=== PATIENT | male | born 1985 | race Caucasian/White ===

== ENCOUNTER → 2017-01-06 | Outpatient (CLI) | payer OTHER ==
[~2017-01-06] MED LIST: ABL10 PO; CGN1 PO; CLR10 PO; DIVA125C PO; FLUO40CA8 PO; LAMO25TA PO; OMEP20CA59 PO; PROM12.56 PO
--- NOTE | 2017-01-07 06:02 | PAP/PSG TECHNICIAN REPORT ---
[facility] Loss Prevention Associate Polysomnogram Report Study name: None Report date: 01/07/2017 Study date: 01/06/2017 Referring Physician: Mary WILSON M.D. Name: FLORA BUTCHER Interpreting Physician: Sylvester Wilson M.D. Date of : 1985 Loss Prevention Associate: Corie Guerra, PSGT. Sex: Male Age: 31 StudyType: PSG Weight: 285 lbs Height: 31 years, Height 5' 10" BMI: 40.89 Medications: CLARITIN 10 MG, LAMOTRIGINE 100 MG, BENTROPINE 1 MG, PROZAC 40 MG. Patient History 31 YEAR OLD MALE IN ROOM 8 WITH FRAGILE X SYNDROME AND SEVERE JARRETT, HE HAD UPPP SURGERY DONE 10/08/2016. PT. IS HERE FOR FOLLOW UP ON UPPP SURGERY. Parameters Monitored NPSG: E1-M2, E2-M1, Fp1-M2, Fp2-M1, F3-M2, F4-M2, F4-M1, C3-M2, C4-M2, C4-M1, O1-M2, O2-M2, O2-M1, T3-M2, T4-M1, P3-M2, P4-M1, CHIN1, CHIN2, HR, EKG, Legs, PFLOW, SNOR, FLOW, CFLOW, Tidal Volume, THOR, ABDO, SpO2, PLTH, CPRESS, ETCO2 Wave, ETCO2, pH Sleep Architecture Sleep Stages Time at Lights Off 9:54:38 PM STAGES Time (min.) TST (%) Time at Lights On 5:15:38 AM Wake 149.5 -- Total Recording Time (TRT) 441.50 min. N1 3.5 1 Total Sleep Period (TSP) 367.5 min. N2 268.5 92 Total Sleep Time (TST) 291.5min. N3 0.5 0 Awake Time 150.0 min. REM 19.0 7 Wake after Sleep Onset 121.5 min. Sleep Efficiency (SE) 66 % Sleep Onset Latency (KALYAN) 28.0 min. Number of Stage 1 Shifts None Awakenings 5 Stage Changes 19 Number of REM periods 3 REM 19.0 7 REM Latency 203.5 min. NREM 272.5 93 Body Position Analysis Supine Right Left Side Prone Vertical Total Sleep Time (min.) 441.0 0.0 0.0 0.00 0.0 0.0 Total Sleep Time (%) 100% 0% 0% 0 0% N/A% Total Sleep Time REM (min.) 19.0 0.0 0.0 None 0.0 0.0 Total Sleep Time NREM (min.) 272.5 0.0 0.0 None 0.0 0.0 Intermittent Wake (min.) 149.5 0.0 0.0 None 0.0 0.0 Total Sleep Period (%) 100% None None None None None Arousals Myoclonus (PLM) * Events Count Index Events Count Index Spontaneous 34 7 Events Awake (PLMW) 6 2.4 Respiratory 3 0.6 Events Asleep w/ Arousal (PLMA) 14 2.9 PLM 14 3 Events Asleep w/o Arousal (PLMS) 95 19.6 Snoring 0 0 Total Asleep 109 22.4 Total 51 10 Total 115 16 Respiratory Analysis * CA OA MA CH H RERA Total Count 0 0 0 0 43 1 43 Index 0.0 0.0 0.0 0 8.9 0 9.1 Mean Duration 0.0 0.0 0.0 0.00 21.6 9.8 21.4 Longest Duration 0.0 0.0 0.0 0.00 0.0 9.8 56.0 Respiratory Event Summary Total Supine ~Supine Right Left Prone REM NREM Apneas Count 0 0 N/A N/A N/A N/A 0 0 Index 0.0 0 N/A N/A N/A N/A 0 0 Hypopneas (4% Desat) Count 43 43 N/A N/A N/A N/A 2 41 Index 8.9 8.9 N/A N/A N/A N/A 6.3 9.0 Apneas & All Hypopneas Count 43 43 N/A N/A N/A N/A 2 41 Index 8.9 9 N/A N/A N/A N/A 6.3 9.0 Respiratory Events (Statement Distribution Clerk+All Hyp+RERA) Count 43 44 N/A N/A N/A N/A 2 41 Index 9.1 9 N/A N/A N/A N/A 6.3 9.2 Respiratory Related Arousal Count 3 44 N/A N/A N/A N/A 0 3 Index 0.6 1 N/A N/A N/A N/A 0 1 Snoring Analysis Supine Right Left Prone REM NREM Total Snore duration 2.0 min Snores count 83 N/A N/A N/A 9 74 83 Snore mean duration 1.5 Sec Snores index 17 N/A N/A N/A 28.4 16.3 17.1 TST with snoring (%) 0.7% Desaturation Event Summary: Minimum %SpO2 Event Count Mean/Min/Max Duration(sec.) Desaturation Index % Time In Bed > 90 60 28.6 / 9.3 / 60.0 9.4 87.6 86 - 90 6 24.2 / 11.0 / 55.0 6.8 12.1 81 - 85 0 N/A 0.0 0.2 76 - 80 0 N/A 0.0 0.0 71 - 75 0 N/A 0.0 0.0 66 - 70 0 N/A 0.0 0.0 61 - 65 0 N/A 0.0 0.0 56 - 60 0 N/A 0.0 0.0 51 - 55 0 N/A 0.0 0.0 < 50 0 N/A 0.0 0.0 Total REM NREM Awake <50% 0.0 min. 0.0 min. 0.0 min. 0.0 min. 51 - 60% 0.0 min. 0.0 min. 0.0 min. 0.0 min. 61 - 70% 0.0 min. 0.0 min. 0.0 min. 0.0 min. 71 - 80% 0.0 min. 0.0 min. 0.0 min. 0.0 min. 81 - 90% 53.8 min. 0.0 min. 41.9 min. 11.9 min. 91 - 100% 381.4 min. 18.9 min. 226.3 min. 136.2 min. Average 93 96 93 94 Minimum SpO2 82 91 82 87 Desaturation Event Index 8.4 9.5 12.8 0.4 # Desat. Events below 89% 20 N/A 20 N/A Time(%) with Saturation below 89% 1.8 0.0 1.6 0.2 Time(min.) with Saturation below 89% 7.9 0.0 7.1 0.8 Time (mins) REM (mins) NREM (mins) % of TST SpO2 Below 90% 38 N/A N38 6.6 SpO2 Below 88% 9 0 0 1 Heart Rate Analysis Min (bpm) Max (bpm) Average (bpm) Awake 58 86 69 NREM 33 127 63 REM 59 90 74 Overall 33 127 64 Supplemental O2 Values Minimum O2 level: None Value Start Time End Time Loss Prevention Associate Comments PSG Study Mr. Butcher slept in the supine position. No cardiac arrhythmia or PLM's noted. No bruxism noted. Snoring was noted and scored as a 1 on a scale of 1 through 5. (0=no snoring, 5=snoring loud enough to be heard through a closed door or down the [address] way) The final report will be interpreted and signed by a sleep physician. The completed physician report will then be placed in the patient medical record. Therapy (cm H2O) 0 TIB (min.) 441.0 TST (min.) 291.5 Sleep Onset (min.) 28.0 REM Onset From Sleep (min.) 203.5 Sleep Efficiency % 66 Wakefulness (%) 34 Wakefulness (min.) 150.0 NREM 1 (%) 1 NREM 1 (min.) 3.5 NREM 2 (%) 92 NREM 2 (min.) 268.5 NREM 3 (%) 0 NREM 3 (min.) 0.5 REM (%) 7 REM (min.) 19.0 # Arousals 51 Arousal Index 10 # Snore 83 Snore Index 17.1 AHI 8.9 AHI Supine 9 AHI Non-Supine N/A NREM AHI 9.0 REM AHI 6.3 RDI 9.1 # Obstructive Apnea 0 # Central Apnea 0 # Mixed Apnea 0 # Hypopneas 43 RERAs 1 Total Respiratory Events 44 Time Below SpO2 89% (min.) 7.1 Mean NREM SpO2 (%) 93 Mean REM SpO2 (%) 96 Mean Sleep SpO2 (%) 93 Min NREM SpO2 (%) 82 Min REM SpO2 (%) 91 Position Supine (min.) 441.0 Position Non-supine (min.) 0.0 LM Index Sleep 22.4 LM Index NREM 21.8 LM Index REM 31.6 Mean Heart Rate (bpm) 64 Min Heart Rate (bpm) 33
--- NOTE | 2017-01-23 07:52 | POLYSOMNOGRAPH REPORT ---
REFERRING PERSON: Dr. Felix Wilson. PREFINISH OPERATOR: Azra Guerra. Mr. Butcher is a 31-year-old male with fragile X syndrome and who had previously been diagnosed with severe sleep apnea and an AHI of 40. He was very resistant to CPAP therapy and on 10/08/2016, underwent UPPP and tonsillectomy. He is here for followup sleep study post-surgery. His [place] sleepiness scale score on the evening of this study is not recorded. BMI is 33.63. He has also lost about 40 pounds since his previous diagnosis. Following the technical and digital specifications of the [employer] (AASM) a standard diagnostic polysomnogram was performed monitoring EEG, EOG, EMG (chin and leg deviations), oxygen saturation, body position, digital video, respiratory effort and airflow. The sleep Stage and event scoring was based on the AASM Manual for the Scoring of Sleep and Associated Events 2007 edition. Apneas are defined as a drop in the peak thermal sensor excursion by >90% of baseline for at least 10 seconds. Hypopneas were scored using the 4% oxygen desaturation rule (4A-[employer]) and a decrease in the nasal pressure excursions by >30% of baseline for at least 10 seconds. Respiratory effort-related arousal (RERA's) is defined as a sequence of breaths lasting at least 10 seconds characterized by increasing respiratory effort or flattening of the nasal pressure waveform leading to an arousal from sleep when the sequence of breaths does not meet criteria for an apnea or hypopnea. Apnea Hypopnea index (AHI) is defined as the number of apneas and hypopneas occurring in an hour of sleep. Respiratory disturbance index (RDI) is defined as the number of apneas, hypopneas, and RERA's occurring in an hour of sleep. Mr. Butcher's total sleep period time was 367.5 minutes. Total sleep time was 291.5 minutes. Sleep efficiency was 66%. Latency to sleep onset was 28 minutes with wake after sleep onset of 121.5 minutes. Total non-REM sleep time was 272.5 minutes. He spent 1% of that time in N1 sleep, 92% in N2 sleep and no time in N3 sleep. REM latency was 203.5 minutes. Total REM sleep time was 19 minutes or 7% of total sleep time. There were 51 cortical arousals from sleep. Thirty four of these arousals were spontaneous, 3 were due to respiratory events, 14 were due to periodic limb movements of sleep. There were 109 periodic limb movements noted on this test. Limb movement index was 22.4. Limb movement with arousal index was 2.9. There were no central obstructive or mixed apneas on this test. There were 43 hypopneas and 1 RERA. New Apnea-hypopnea index was 8.9. Supine AHI was 9, non-supine AHI was also 9. REM AHI was 6.3. There were 83 snoring events. Total sleep time with snoring was 0.7%. Mean saturation was 93% with desaturations to 82%. Saturations were less than 89% for 7.9 minutes of recorded time. First half, he is currently using 2 liters of oxygen in lieu of CPAP at home. There was no cardiac ectopy noted on this study. Heart rates ranged from a low of 33 beats per minute to a high of 127 beats per minute during sleep. IMPRESSION AND PLAN: A 31-year-old male with fragile X syndrome with evidence of mild sleep apnea and mild nocturnal hypoxemia on this study. I would argue that he should continue on CPAP therapy which can improve hypoxemia as well as apnea but should he be unwilling to do so, then oxygen should be continued for his mild nocturnal hypoxemia.
== END | disposition home or self-care (01) ==
LOC: C.NEUR 21:00
PROVIDERS: ATTEND Family Medicine
DX: G47.33 Obstructive sleep apnea (adult) (pediatric) (principal); Q99.2 Fragile X chromosome